=== PATIENT | male | born 1980 ===

== ENCOUNTER 2018-12-09 09:41 | Emergency (ER) | payer OTHER ==
[2018-12-09 10:03] VITALS: BP 126/90
--- NOTE | 2018-12-09 10:25 | UC ---
Throat Pain/Nasal Shan HPI - HPI Summary HPI Summary: Patient is a 38-year-old male who presents to the urgent care with chief complaint of having sore throat since last Wednesday. The patient reports that he feels like razor blades. He is been having fevers and chills and body aches. Patient denies any chest pain or shortness of breath. Patient has no other complaints. Patient is able to swallow and doesnt have any airway compromise. . - History of Current Complaint Chief Complaint: UCRespiratory Stated Complaint: SORE THROAT Time Seen by Provider: 12/09/18 10:16 Hx Obtained From: Patient Onset/Duration: Gradual Onset Severity: Moderate Pain Intensity: 7 - Allergies/Home Medications Allergies/Adverse Reactions: Allergies Allergy/AdvReac Type Severity Reaction Status Date / Time No Known Allergies Allergy Verified 12/09/18 10:03 PMH/Surg Hx/FS Hx/Imm Hx Previously Healthy: Yes - Surgical History Surgical History: Yes Surgery Procedure, Year, and Place: rectal abcess 2 yrs ago - Family History Known Family History: Positive: Non-Contributory - Social History Alcohol Use: Weekly Alcohol Amount: weekends Substance Use Type: Marijuana Smoking Status (MU): Former Smoker - Immunization History Most Recent Influenza Vaccination: unknown Most Recent Tetanus Shot: 2013 Most Recent Pneumonia Vaccination: none Review of Systems All Other Systems Reviewed And Are Negative: Yes Constitutional: Positive: Fever, Chills Skin: Positive: Negative Eyes: Positive: Negative ENT: Positive: Sore Throat Respiratory: Positive: Negative Cardiovascular: Positive: Negative Gastrointestinal: Positive: Negative Genitourinary: Positive: Negative Motor: Positive: Negative Neurovascular: Positive: Negative Musculoskeletal: Positive: Negative Neurological: Positive: Negative Psychological: Positive: Anxious Is Patient Immunocompromised?: No Physical Exam - Summary Physical Exam Summary: Vital signs: Reviewed Gen.: Patient is a well developed and nourished male in no acute distress. Patient is sitting comfortably on the stretcher. Head: Normacephalic and atraumatic Eyes: PERRLA, EOMI x2. Ears: Right ear canal and TM WNL Left ear canal and TM WNL Nose Nose with dry mucosa and clear discharge. No sinus tenderness and mouth: Positive pharyngeal erythema with no exudate. Neck: Supple, positive bilateral submandibular and anterior cervical lymphadenopathy. No JVD Lungs: CTA B/L CVS: S1 & S2 present. No murmurs appreciated. ABDOMEN: Soft NT w/ positive BS. EXT: FROM x 4 NEURO: A+O X 3 Triage Information Reviewed: Yes Appearance: Well-Appearing, No Pain Distress, Well-Nourished Vital Signs: Initial Vital Signs Temp 97.7 F 12/09/18 09:59 Pulse 88 12/09/18 09:59 Resp 18 12/09/18 09:59 BP 126/90 12/09/18 09:59 Pulse Ox 99 12/09/18 09:59 Throat Pain/Nasal Course/Dx - Course Course Of Treatment: Rapid strep is positive. Therefore the patient will be given a prescription for Augmentin and ibuprofen. The patient will be discharged home with follow- up with PCP. Patient was instructed to go to the ER if the symptoms do not improve - Differential Dx/Diagnosis Provider Diagnosis: Strep pharyngitis Discharge - Sign-Out/Discharge Documenting (check all that apply): Patient Departure All imaging exams completed and their final reports reviewed: No Studies - Discharge Plan Condition: Stable Disposition: HOME Prescriptions: Amoxicillin/Clavulanate TAB* [Augmentin TAB 875*] 875 mg PO BID #20 tab Ibuprofen TAB* [Motrin TAB* 800 MG] 800 mg PO TID PRN #20 tab PRN Reason: Pain Referrals: Ruperto Ho MD [Primary Care Provider] - - Billing Disposition and Condition Condition: STABLE Disposition: Home
== END 2018-12-09 10:29 | disposition home or self-care (01) ==
LOC: UCEAST 09:41
DX: J02.0 Streptococcal pharyngitis (principal); Z87.891 Personal history of nicotine dependence
CPT/HCPCS: 87651; 99212; G0463

== ENCOUNTER 2018-12-29 10:50 | Emergency (ER) | payer OTHER ==
[2018-12-29 11:00] VITALS: BP 126/86
--- NOTE | 2018-12-29 11:19 | UC ---
Throat Pain/Nasal Shan HPI - HPI Summary HPI Summary: Started w/ sore throat for a few days. has left lymph node soreness. able to drink fluids. nothing makes it better. Of note was + for Strep and finished tx of anitibx 3 wks. ago. - History of Current Complaint Chief Complaint: UCRespiratory Stated Complaint: SORE THROAT Time Seen by Provider: 12/29/18 10:56 Hx Obtained From: Patient Pain Intensity: 3 Pain Scale Used: 0-10 Numeric - Allergies/Home Medications Allergies/Adverse Reactions: Allergies Allergy/AdvReac Type Severity Reaction Status Date / Time No Known Allergies Allergy Verified 12/29/18 11:00 PMH/Surg Hx/FS Hx/Imm Hx - Additional Past Medical History Additional PMH: no chronic issues Previously Healthy: Yes - Surgical History Surgical History: Yes Surgery Procedure, Year, and Place: rectal abcess - Family History Known Family History: Positive: Non-Contributory - Social History Alcohol Use: Occasionally Alcohol Amount: weekends Substance Use Type: None Smoking Status (MU): Former Smoker - Immunization History Most Recent Influenza Vaccination: unknown Most Recent Tetanus Shot: 2013 Most Recent Pneumonia Vaccination: none Review of Systems All Other Systems Reviewed And Are Negative: Yes Constitutional: Negative: Fever Skin: Negative: Rash ENT: Positive: Sore Throat, Ear Ache. Negative: Sinus Congestion Respiratory: Positive: Negative Cardiovascular: Positive: Negative Musculoskeletal: Negative: Myalgia Neurological: Negative: Headache Physical Exam Triage Information Reviewed: Yes Appearance: Well-Appearing Vital Signs: Initial Vital Signs Temp 97.4 F 12/29/18 10:57 Pulse 91 12/29/18 10:57 Resp 18 12/29/18 10:57 BP 126/86 12/29/18 10:57 Pulse Ox 98 12/29/18 10:57 Vital Signs Reviewed: Yes Neck: Positive: Supple, No Lymphadenopathy, Tenderness @ - L sided Respiratory Exam: Normal Cardiovascular Exam: Normal Neurological: Positive: Alert Skin: Negative: Rashes Throat Pain/Nasal Course/Dx - Course Course Of Treatment: Bacterial pharyngitis for a few days w/ a + rapid strep today. Able to take in fluids, his vitals are good. Will tx w/ antibx. This is his 2nd + strep in a month. we discussed throwing away tooth brush may work but to monitor episodes of infection. - Differential Dx/Diagnosis Differential Diagnosis/HQI/PQRI: Pharyngitis, Tonsillitis, URI Provider Diagnosis: Strep pharyngitis Discharge - Sign-Out/Discharge Documenting (check all that apply): Patient Departure All imaging exams completed and their final reports reviewed: No Studies - Discharge Plan Condition: Good Disposition: HOME Prescriptions: Penicillin VK TAB* [Penicillin VK 250 mg Tab*] 500 mg PO BID 10 Days #20 tab Patient Education Materials: Strep Throat (ED) Referrals: Ruperto Ho MD [Primary Care Provider] - Additional Instructions: If not improving please follow up with your pcp - Billing Disposition and Condition Condition: GOOD Disposition: Home
== END 2018-12-29 11:45 | disposition home or self-care (01) ==
LOC: UCEAST 10:50
DX: J02.0 Streptococcal pharyngitis (principal); Z87.891 Personal history of nicotine dependence
CPT/HCPCS: 87651; 99212; G0463